=== PATIENT | female | born 1940 | race African-American/Black ===

== ENCOUNTER 2019-08-24 09:33 | Observation (INO) | payer MEDICARE ==
[~2019-08-24] VITALS: Ht 170.2 cm; Wt 93.2 kg
[~2019-08-24 09:33] MED LIST: ALTACE10 M1 OR; ALTACE10 M1 PO; ALTACE10 MG PO; ALTACE5 M1 PO; AMOX/K CLAV875 M1 PO; BL ADULT ASA81 MG OR; CALAN PO; CENTRUM SILVER1 TAB; CHERATUSSIN OR; CIPROFLOXACN500 MG PO; CRESTOR40 MG PO; CRESTOR5 MG OR; CRESTOR5 MG PO; FLEXERIL10 MG PO; FLEXERIL5 M1 PO; FLEXERIL5 MG PO; HYDROCHLOROT25 MG PO; KLOR-CON 1010 ME1 OR; MICRO-K10 ME1 PO; NAPROSYN500 MG PO; NAPROXEN250 MG PO; NAPROXEN500 MG PO; PERCOCET 5/325M1 TAB PO; RAMIPRIL2.5 MG PO; ROCEPHIN 1 GM1 GM IM; TUBERSOL5 MG/0.1 M ID; VAGIFEM10 MCG VA
--- NOTE | 2019-08-24 09:33 | NUR ---
PT DIRECTLY TO ROOM VIA WHEELCHAIR.
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
--- NOTE | 2019-08-24 10:05 | NUR ---
[facility] WORK DRAWN AND MD AT BEDSIDE
[2019-08-24 10:45] LABS: HEMATOCRIT 40.2 % (37.0-47.0); HEMOGLOBIN 12.4 g/dl (12.0-16.0); IMMATURE GRANULOCYTES 0.3 % (0.0-5.0); MEAN CELL VOLUME 88.7 fL CALC (80.0-100.0); MEAN CORPUSCULAR HGB 27.4 pG CALC (26.0-32.0); MEAN CORPUSCULAR HGB CONC 30.8 g/L CALC (32.0-36.0); NEUT# 3.91 thou/uL (2.00-7.15); RED BLOOD COUNT 4.53 mill/uL (4.20-5.60); RED CELL DISTRI WIDTH 14.2 % (11.5-15.5)
[2019-08-24 11:08] LABS: ALBUMIN 4.1 g/dL (3.2-5.0); ALKALINE PHOSPHATASE 130 u/l (38-126); AMYLASE 52 u/l (30-110); ANION GAP 11 (6-22 (CALC)); BILIRUBIN, TOTAL 0.6 mg/dL (0.0-1.4); BUN 13 mg/dL (8-23); BUN/CREATININE RATIO 17 (12-20 (CALC)); CARBON DIOXIDE 24 mmol/l (22-30); CHLORIDE 109 mmol/l (95-108); CREATININE 0.8 mg/dL (0.5-1.0); GFR > 60 ML/MIN (>=60 (CALC)); GFR FOR AFR.AMER. > 60 ML/MIN (>=60 (CALC)); LIPASE 71 u/l (23-300); MAGNESIUM 1.9 mg/dL (1.6-2.3); POTASSIUM 4.3 mmol/l (3.5-5.1); SGOT/AST 31 u/l (9-36); SODIUM 140 mmol/l (137-146); TOTAL PROTEIN 7.8 g/dL (6.3-8.2)
--- NOTE | 2019-08-24 11:10 | NUR ---
PT AWARE OF PLANNED ADMISSION, NO NEW COMPLAINTS OFFERED, NO NEW C/O CHEST PAIN, CALL RAVI WITHIN REACH
--- NOTE | 2019-08-24 12:20 | NUR ---
PT AMBULATED TO BATHROOM WITH STEADY GAIT, AWARE OF NEED FOR SPECIMEN, SUPPLIES AND INSTRUCTIONS PROVIDED
--- NOTE | 2019-08-24 13:04 | NUR ---
SET UP ASSIST PROVIDED FOR MEAL
[2019-08-24 13:33] LABS: URINE BILIRUBIN - DIPSTICK NEGATIVE (NEGATIVE); URINE BLOOD DIPSTICK NEGATIVE (NEGATIVE); URINE COLOR YELLOW; URINE GLUCOSE - DIPSTICK NEGATIVE (NEGATIVE); URINE KETONE NEGATIVE (NEGATIVE); URINE LEUK ESTERASE NEGATIVE (NEGATIVE); URINE NITRITE - DIPSTICK NEGATIVE (Negative); URINE PROTEIN - DIPSTICK NEGATIVE (NEG-TRACE); URINE SPECIFIC GRAVITY >=1.030; URINE UROBILINOGEN - DIPSTICK 0.2 E.U./dL (0.2)
--- NOTE | 2019-08-24 14:05 | NUR ---
PT AWARE OF PLANNED ADMISSION NO COMPLAINTS OFFERED, DAUGHTER AT BEDSIDE
[2019-08-24] MEDS ORDERED: TELMISARTAN40 MG PO (14:25)
[2019-08-24] MEDS ORDERED: ROSUVASTATIN CA20 MG PO (14:26)
--- NOTE | 2019-08-24 14:50 | NUR ---
NITRO PASTE REMOVED PER VERBAL ORDERED , ALSO MADE MD AWARE OF MED REC COMPLETED AND NEEDS REVIEW BY HIM, STATED HE WOULD TAKE CARE OF IT.
--- NOTE | 2019-08-24 15:15 | NUR ---
REPORT CALLED TO DESTINEE DAVIS ON MED SURG
--- NOTE | 2019-08-24 15:50 | NUR ---
PT ARRIVED TO FLOOR ACCOMPANIED BY CECI HODGES AND DAUGHTER. A&O X3. NO DISTRESS NOTED. ORIENTED PT TO ROOM. CONTINUE TO MONITOR.
--- NOTE | 2019-08-24 15:50 | NUR ---
PT TRANSPORTED TO [facility]G [facility], ALL BELONGING SENT WITH PT
[2019-08-24 16:05] VITALS: BP 122/62
--- NOTE | 2019-08-24 17:40 | NUR ---
PT SITTING IN BED EATING SUPPER. NO DISTRESS NOTED. CONTINUE TO MONITOR.
[2019-08-24 18:28] VITALS: BP 152/80
--- NOTE | 2019-08-24 20:00 | NUR ---
PATIENT RESTING IN BED AT THIS TIME-AWAKE ALERT AND ORIENTEDX3. PATIENT DENIES ANY CHEST PAIN OR DISCOMFORT AT THIS TIME. TELE MONITOR IN PLACE. PATIENT WITH IV SITE TO LEFT FOREARM-SITE APPEARS HEALTHY AT THIS TIME. SAFETY PRECAUTIONS REINFORCED. CALL LIGHT IN REACH. WILL CONT TO MONITOR.
[2019-08-24 23:52] VITALS: BP 146/80
--- NOTE | 2019-08-25 | NUR ---
PATIENT RESTING IN BED-APPEARS SLEEPING AT THIS TIME WITH EYES COSED. RESPS ARE EVEN AND UNLABORED. TELE MONITOR IN PLACE. CALL LIGHT IN REACH. WILL CONT TO MONITOR.
[2019-08-25 03:19] VITALS: BP 146/81
--- NOTE | 2019-08-25 05:10 | NUR ---
APPEARS SLEEPING AT THIS TIME WITH HOB ELEVATED AND EYES CLOSED. RESPS ARE EVEN AND UNLABORED. CALL LIGHT IN REACH. WILL CONT TO MONITOR.
[2019-08-25 07:06] LABS: CHOLESTEROL HDL RATIO 2.8 (<4.4 (CALC))
--- NOTE | 2019-08-25 09:00 | NUR ---
PT SEEN AWAKE, ALERT, ORIENTED X 3. LUNGS CLEAR, RA, PT AMBULATORY WITHOUT DIFFICULTY. PT DENIES CHEST PAIN OR SHORTNESS OF BREATH.
[2019-08-25 11:36] VITALS: BP 140/73
--- NOTE | 2019-08-25 13:15 | NUR ---
PT HAS BEEN DISCHARGED TO HOME BY DR TAMEZ. PT VERBALIZED UNDERSTANDING OF DC INSTRUCTIONS, CHOSE TO AMBULATE TO LOBBY, LEAVES WITH STEADY GAIT. NO COMPLAINTS WERE HEARD DURING HER STAY REGARDING CHEST PAIN OR SHORTNESS OF BREATH BY THIS NURSE.
== END 2019-08-25 13:08 | disposition home or self-care (01) ==
LOC: ED 09:33 → ED-I 11:17 → ED 11:33 → MS2 11:34 → ED-I 11:34 → MS2 14:25
PROVIDERS: ADMIT Internal Medicine; ATTEND Internal Medicine
DX: R07.9 Chest pain, unspecified (principal); I10 Essential (primary) hypertension; I25.10 Atherosclerotic heart disease of native coronary artery without angina pectoris; I25.2 Old myocardial infarction; E78.5 Hyperlipidemia, unspecified; R94.6 Abnormal results of thyroid function studies; Z23 Encounter for immunization
CPT/HCPCS: G0378

== ENCOUNTER 2022-09-11 15:45 | Observation (INO) | payer MEDICARE ==
[~2022-09-11] VITALS: Ht 170.2 cm; Wt 97.0 kg
[2022-09-11] VITALS (12 sets, daily range): BP systolic 147–171; BP diastolic 76–91
[~2022-09-11 15:45] MED LIST changes: +ROSUVASTATIN CA20 MG PO; +TELMISARTAN40 MG PO
--- NOTE | 2022-09-11 16:15 | NUR ---
PT IN BED, NO SIGNS OF ACUTE DISTRESS NOTED, DAUGHTER AT BEDSIDE
[2022-09-11] MEDS ORDERED: PROCARDIA XL30 MG PO (16:17)
[2022-09-11] MEDS ORDERED: SLOW-MAG PO (16:20)
[2022-09-11] MEDS ORDERED: D325 MCG PO (16:21)
[2022-09-11 16:22] LABS: BASO% 0.1 % (0-3); EOS% 1.4 % (0-8); HEMATOCRIT 42.8 % (37.0-47.0); IMMATURE GRANULOCYTES 0.2 % (0.0-5.0); LYMPH% 30.4 % (15-41); MEAN CELL VOLUME 90.9 fL CALC (80.0-100.0); MEAN CORPUSCULAR HGB 27.6 pG CALC (26.0-32.0); MEAN CORPUSCULAR HGB CONC 30.4 g/dL CAL (32.0-36.0); MONO% 7.7 % (2-13); NEUT# 6.34 thou/uL (2.00-7.15); NEUT% 60.2 % (42-76); RED BLOOD COUNT 4.71 mill/uL (4.20-5.60); RED CELL DISTRI WIDTH 14.4 % (11.5-15.5)
[2022-09-11 16:44] LABS: ALBUMIN 4.6 g/dL (3.2-5.0); ANION GAP 14 (6-22 (CALC)); BILIRUBIN, TOTAL 0.7 mg/dL (0.02-1.3); BUN 11 mg/dL (8-23); BUN/CREATININE RATIO 13 (12-20 (CALC)); CARBON DIOXIDE 23 mmol/l (22-30); CHLORIDE 107 mmol/l (95-108); CREATININE 0.8 mg/dL (0.5-1.0); GFR FOR AFR.AMER. > 60 ML/MIN (>=60 (CALC)); GFR OTHER RACES > 60 ML/MIN (>=60 (CALC)); SGOT/AST 58 u/l (9-36); SODIUM 140 mmol/l (137-146); TOTAL PROTEIN 8.7 g/dL (6.3-8.2)
[2022-09-11 16:51] LABS: ALKALINE PHOSPHATASE 208 u/l (38-126)
--- NOTE | 2022-09-11 17:13 | NUR ---
Reassessment of patient completed. No distress noted. TOOK PATIENT TO BATHROOM. AMBULATED WITHOUT DIFFICULTY.
--- NOTE | 2022-09-11 18:15 | NUR ---
Reassessment of patient completed. No distress noted. VSS, TRANSFERED TO [facility] ROOM 277 VIA W/C, REPORT CALLED PRIOR, ALL BELONGINGS SENT WITH PATIENT.
--- NOTE | 2022-09-11 19:45 | NUR ---
PATIENT IS RESTING IN BED-C/O LEFT NECK AND HEAD PAIN-WARM COMPRESS OFFERED AND PATIENT USING 20MIN ON 20MIN OFF. CALL PLACED TO DR. NOVA AND WILL PLACE NEW ADMISSION ORDERS. PATIENT WAS NOTIFIED AND WILL MEDICATE PATIENT SOME MEDICATIONS ARE PROFILED ON EMAR. WILL CONT TO MONITOR.
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
[2022-09-12] VITALS: BP 121/63
--- NOTE | 2022-09-12 01:59 | NUR ---
PATIENT RESTING IN BED AT THIS TIME. EYES ARE CLOSED AND RESPS ARE EVEN AND UNLABORED. TELE MONITOR IN PLACE. IV SITE TO RAC INTACT. CALL LIGHT IN REACH, WILL CONT TO MONITOR.
--- NOTE | 2022-09-12 02:54 | NUR ---
RESTING IN BED. TROP WAS DRAWN-AWAITING RESULTS. TELE MONITOR IN PLACE. SALINE LOCK TO RAC INTACT. CALL LIGHT IN REACH. WILL CONT TO MONITOR.
[2022-09-12 02:56] LABS: ALBUMIN 3.8 g/dL (3.2-5.0); ALKALINE PHOSPHATASE 174 u/l (38-126); ANION GAP 12 (6-22 (CALC)); BILIRUBIN, TOTAL 0.8 mg/dL (0.02-1.3); BUN 9 mg/dL (8-23); BUN/CREATININE RATIO 11 (12-20 (CALC)); CALCULATED LDLCHOLESTEROL 142 mg/dL (62-129 (CALC)); CARBON DIOXIDE 24 mmol/l (22-30); CHLORIDE 107 mmol/l (95-108); CHOLESTEROL HDL RATIO 2.7 (<4.4 (CALC)); CREATININE 0.8 mg/dL (0.5-1.0); GFR FOR AFR.AMER. > 60 ML/MIN (>=60 (CALC)); GFR OTHER RACES > 60 ML/MIN (>=60 (CALC)); HDL CHOLESTEROL 94 mg/dL (39.0-59.0); MAGNESIUM 1.9 mg/dL (1.6-2.3); SGOT/AST 42 u/l (9-36); SODIUM 138 mmol/l (137-146); TOTAL PROTEIN 7.3 g/dL (6.3-8.2); TOTAL TRIGLYCERIDES 69 mg/dl (0-149); VLDL CHOLESTROL 14 mg/dl (0-48 (CALC))
[2022-09-12 02:58] LABS: TOTAL CHOLESTEROL 250 mg/dl (0-199)
[2022-09-12 04:30] VITALS: BP 106/59
--- NOTE | 2022-09-12 04:30 | NUR ---
RESTING IN BED-LAST TROP WAS NEG. EYES ARE CLOSED. RESPS ARE EVEN AND UNLABORED.TELE MONITOR IN PLACE WITH LAST READING SR-77. SALINE LOCK TO RAC INTACT. CALL LIGHTIN REACH. WILL CONT TO MONITOR.
[2022-09-12 04:35] VITALS: BP 106/59
[2022-09-12 06:43] VITALS: BP 112/52
[2022-09-12 08:00] VITALS: BP 112/52
--- NOTE | 2022-09-12 08:00 | NUR ---
Alert and oriented patient x3. Assessment head-to-toe complete. Patient does not refer pain at the time of this note. Pt connected to telemetry. Good heart and respiratory rhythm at the time of this note. Patient is educated about medications, nursing plan and for today. Patient refers to understanding. Safety and fall precautions in place. Call light within in reach.
[2022-09-12 10:34] VITALS: BP 131/73
--- NOTE | 2022-09-12 11:38 | NUR ---
Discharge instructions given. Patient verbalizes understanding of same. Discharged in stable condition via Wheelchair to Home with staff. All belongings sent with pt.
== END 2022-09-12 11:37 | disposition home or self-care (01) ==
LOC: ED 15:45 → ED-I 16:52 → ED 17:03 → MS2 17:04
PROVIDERS: Family Medicine; ADMIT Internal Medicine; ATTEND Internal Medicine
DX: R07.9 Chest pain, unspecified (principal); I10 Essential (primary) hypertension; I25.10 Atherosclerotic heart disease of native coronary artery without angina pectoris; E78.5 Hyperlipidemia, unspecified; I25.2 Old myocardial infarction
CPT/HCPCS: J1650

== ENCOUNTER 2023-07-10 12:07 | Emergency (ER) | payer MEDICARE ==
[~2023-07-10] VITALS: Ht 170.2 cm; Wt 87.5 kg
[2023-07-10] VITALS (12 sets, daily range): BP systolic 115–177; BP diastolic 58–96
[~2023-07-10 12:07] MED LIST changes: +D325 MCG PO; +PROCARDIA XL30 MG PO; +SLOW-MAG PO
[2023-07-10 13:49] LABS: ALBUMIN 4.3 g/dL (3.2-5.0); ALKALINE PHOSPHATASE 186 u/l (38-126); ANION GAP 10 (6-22 (CALC)); BILIRUBIN, TOTAL 0.9 mg/dL (0.02-1.3); BUN 10 mg/dL (8-23); BUN/CREATININE RATIO 11 (12-20 (CALC)); CARBON DIOXIDE 28 mmol/l (22-30); CHLORIDE 108 mmol/l (95-108); CREATININE 0.9 mg/dL (0.5-1.0); GFR FOR AFR.AMER. > 60 ML/MIN (>=60 (CALC)); GFR OTHER RACES 60 ML/MIN (>=60 (CALC)); LIPASE 100 u/l (23-300); POTASSIUM 3.9 mmol/l (3.5-5.1); SGOT/AST 47 u/l (9-36); SODIUM 143 mmol/l (137-146); TOTAL PROTEIN 8.4 g/dL (6.3-8.2)
[2023-07-10 13:53] LABS: BASO% 0.4 % (0-3); EOS% 1.5 % (0-8); HEMATOCRIT 43.5 % (37.0-47.0); HEMOGLOBIN 13.3 g/dl (12.0-16.0); IMMATURE GRANULOCYTES 0.4 % (0.0-5.0); LYMPH% 24.6 % (15-41); MEAN CELL VOLUME 92.2 fL CALC (80.0-100.0); MEAN CORPUSCULAR HGB 28.2 pG CALC (26.0-32.0); MEAN CORPUSCULAR HGB CONC 30.6 g/dL CAL (32.0-36.0); MONO% 4.3 % (2-13); NEUT# 5.16 thou/uL (2.00-7.15); NEUT% 68.8 % (42-76); RED BLOOD COUNT 4.72 mill/uL (4.20-5.60); RED CELL DISTRI WIDTH 13.9 % (11.5-15.5)
[2023-07-10 15:38] LABS: URINE BILIRUBIN - DIPSTICK Negative (NEGATIVE); URINE BLOOD DIPSTICK Trace-lysed (NEGATIVE); URINE GLUCOSE - DIPSTICK Negative (NEGATIVE); URINE KETONE Negative (NEGATIVE); URINE LEUK ESTERASE Negative (NEGATIVE); URINE NITRITE - DIPSTICK Negative (Negative); URINE PROTEIN - DIPSTICK 30 mg/dL (NEG-TRACE)
[2023-07-10 15:42] LABS: URINE COLOR Yellow
[2023-07-10 15:55] LABS: URINE RBC 0-2 RBC/hpf (0-5); URINE SQUAMOUS EPITHELIAL CELL FEW EPI/hpf (0-FEW); URINE WBC 0-2 WBC/hpf (0-5)
[2023-07-10] MEDS ORDERED: MECLIZINE 2525 MG PO (16:55)
[2023-07-10] MEDS ORDERED: ONDANSETRON4 MG PO (16:55)
[2023-07-10] MEDS ORDERED: MEDDOSEPAK PO (16:55)
== END 2023-07-10 17:51 | disposition home or self-care (01) ==
LOC: ED 12:07
PROVIDERS: Nurse Practitioner
DX: R42 Dizziness and giddiness (principal); R11.2 Nausea with vomiting, unspecified; I10 Essential (primary) hypertension; I25.10 Atherosclerotic heart disease of native coronary artery without angina pectoris; I25.2 Old myocardial infarction; E78.5 Hyperlipidemia, unspecified; Z20.822 Contact with and (suspected) exposure to COVID-19